=== PATIENT | male | born 1955 | race Caucasian/White ===

== ENCOUNTER 2019-07-08 10:12 | Emergency (ER) | payer MEDICARE, OTHER ==
[~2019-07-08] VITALS: Ht 182.9 cm; Wt 96.2 kg
[2019-07-08 14:24] VITALS: BP 135/87
== END 2019-07-08 15:08 | disposition home or self-care (01) ==
LOC: ER 10:12
DX: M79.674 Pain in right toe(s) (principal)
CPT/HCPCS: 73660